=== PATIENT | male | born 1965 | race Caucasian/White ===

== ENCOUNTER 2016-09-08 21:45 | Emergency (ER) | payer OTHER ==
[2016-09-08] MEDS ORDERED: diPHENhydraMINE IV* 50 MG/ML 1 ml VIAL (BENADRYL) IV ONE (22:24)
[2016-09-08] MEDS ORDERED: Ketorolac INJ* 30 MG/ML 1 ML VIAL IV ONE (22:24)
[2016-09-08] MEDS ORDERED: Ondansetron INJ* 2 MG/ML VIAL IV ONE (22:24)
[2016-09-08] MEDS ORDERED: NS 0.9% 1000 ML* 2,000 ML IV ONE (22:24)
[2016-09-09] MEDS ORDERED: Ondansetron ODT TAB* 4 MG PO ONE (00:34)
--- NOTE | 2016-09-09 00:38 | ED ---
I, Oh,Mathew, scribed for Gonzalez West MD on 09/08/16 at 2224 . Headache - HPI Summary HPI Summary: This 51 y/o male presents to ED for gradually worsening, persistent migraine SANCHEZ. SANCHEZ is located frontal. PMHx does include known migraine, but pt decided to come to ED today when pt failed to control his SANCHEZ with APAP, last taken 1400 PM today, and Relpax, last taken at 1500 PM today. Pt started n/v 1600 PM. Pt states that migraine feels like his typical migraine, and only concerned with its persistence in spite of Relpax. - History Of Current Complaint Chief Complaint: EDHeadache Stated Complaint: MIRAINE/VOMITING Time Seen by Provider: 09/08/16 22:12 Hx Obtained From: Patient, Medical Records Onset/Duration: Gradual Onset Initially Headache Was: Mild Currently Pain Is: Mild Timing: Constant Character: Dull Location of Headache: Frontal Aggravating Factor: Nothing Allevating Factors: Nothing Associated Signs And Symptoms: Nausea, Vomiting - Allergies/Home Medications Allergies/Adverse Reactions: Allergies Allergy/AdvReac Type Severity Reaction Status Date / Time No Known Allergies Allergy Verified 09/08/16 21:51 PMH/Surg Hx/FS Hx/Imm Hx Neurological History: Reports: Hx Migraine Infectious Disease History: No Infectious Disease History: Denies: Traveled Outside the [place] in Last 30 Days - Family History Known Family History: Negative: Cardiac Disease - Social History Alcohol Use: Occasionally Hx Substance Use: No Substance Use Type: Reports: None Hx Tobacco Use: No Smoking Status (MU): Never Smoked Tobacco Review of Systems Negative: Fever Positive: Vomiting, Nausea Positive: Headache - frontal migraine SANCHEZ Negative: Anxious, Depressed All Other Systems Reviewed And Are Negative: Yes Physical Exam Triage Information Reviewed: Yes Vital Signs On Initial Exam: Initial Vitals Temp Pulse Resp BP Pulse Ox 97.7 F 110 20 183/115 100 09/08/16 21:46 09/08/16 21:46 09/08/16 21:46 09/08/16 21:46 09/08/16 21:46 Vital Signs Reviewed: Yes Appearance: Positive: Pain Distress - mild to moderate Skin: Positive: Warm, Skin Color Reflects Adequate Perfusion, Dry Head/Face: Positive: Normal Head/Face Inspection Eyes: Positive: EOMI, EDGARDO Neck: Positive: Supple, Nontender Respiratory/Lung Sounds: Positive: Clear to Auscultation, Breath Sounds Present Cardiovascular: Positive: RRR, Pulses are Symmetrical in both Upper and Lower Extremities Abdomen Description: Positive: Other: - actively n/v at time of initial evaluation Musculoskeletal: Positive: Strength/ROM Intact Neurological: Positive: Sensory/Motor Intact, Alert, Oriented to Person Place, Time. Negative: Focal Deficit @ Psychiatric: Positive: Affect/Mood Appropriate AVPU Assessment: Alert Diagnostics - Vital Signs Vital Signs Temp Pulse Resp BP Pulse Ox 09/08/16 21:46 97.7 F 110 20 183/115 100 - Laboratory Lab Statement: Any lab studies that have been ordered have been reviewed, and results considered in the medical decision making process. Re-Evaluation - Re-Evaluation First Eval Re-Evaluation Time: 00:27 Change: Improved Comment: MD in room to re-evaluate pt. SANCHEZ improved after IV benadryl, NS fluid, zofran, and toradol. Headache Course/Dx - Course Assessment/Plan: SANCHEZ IS A TYPICAL DISTRIBUTION/PRESENTATION WITH THE EXCEPTION OF WORSE INTENSITY AND DURATION. IMPROVED IN ED. DISCHARGE HOME STABLE. WILL F/ U WITH DR CERWS. - Diagnoses Provider Diagnoses: Migraine Discharge - Discharge Plan Condition: Stable Disposition: HOME Prescriptions: Ondansetron ODT TAB* [Zofran 4 MG Odt TAB*] 4 mg PO Q6H PRN #10 tab.odt PRN Reason: Nausea Patient Education Materials: Migraine Headache (ED) Referrals: Chandu Parker MD [Primary Care Provider] - Elder Crews MD [Medical Doctor] - Additional Instructions: FOLLOW UP WITH YOUR NEUROLOGIST. RETURN TO THE EMERGENCY DEPARTMENT FOR ANY WORSENING OF YOUR CONDITION; PAIN, WEAKNESS, NUMBNESS, YOU FEEL ILL OR QUESTIONS OR CONCERNS. The documentation as recorded by the Magdy baumann Soohyun accurately reflects the service I personally performed and the decisions made by me, Gonzalez West MD.
[2016-09-09 01:03] VITALS: BP 158/109
== END 2016-09-09 00:59 | disposition home or self-care (01) ==
LOC: ED 21:45
DX: G43.909 Migraine, unspecified, not intractable, without status migrainosus (principal); R11.2 Nausea with vomiting, unspecified; R51 Headache
CPT/HCPCS: 96374; 96375; 99283; J1200; J1885; J2405